=== PATIENT | male | born 1995 | race Caucasian/White ===

== ENCOUNTER 2017-07-01 14:29 | Emergency (ER) | payer OTHER ==
--- NOTE | 2017-07-01 15:13 | UC ---
General HPI - HPI Summary HPI Summary: Pt presents to with complaint of 3 days frontal head/bilat temporal pain and fatigue. Pt states feels chills, no documented fever. Pt reports nausea but no vomiting. no diarrhea. No cp, sob, abd pain. Decreased appetite. no rashes. Pt has been drinking water, no po. Denies sick contact. Pt has taken motrin for his headache - last dose this morning at 7am. Pt denies photophobia - History of Current Complaint Chief Complaint: UCGeneralIllness Stated Complaint: HEADACHE,FATIGUED Time Seen by Provider: 07/01/17 15:11 Hx Obtained From: Patient Onset/Duration: Gradual Onset Timing: Constant Onset Severity: Mild Current Severity: Moderate Pain Intensity: 7 Pain Location at: bilat temples Pain Radiates to: none Character: pressure Associated Signs & Symptoms: Positive: Decreased Oral Intake, Headache, Nausea. Negative: Dizziness, Diaphoresis, Fever - Allergy/Home Medications Allergies/Adverse Reactions: Allergies Allergy/AdvReac Type Severity Reaction Status Date / Time No Known Allergies Allergy Verified 07/01/17 14:38 Home Medications: Home Medications Ibuprofen TAB* [Advil TAB*] 400 mg PO Q6H PRN 07/01/17 [History Confirmed ] PMH/Surg Hx/FS Hx/Imm Hx Previously Healthy: Yes - Surgical History Surgical History: None - Social History Occupation: Student - lives in off campus house Alcohol Use: Weekly Substance Use Type: None Smoking Status (MU): Never Smoked Tobacco - Immunization History Most Recent Influenza Vaccination: no Review of Systems Constitutional: Chills Skin: Negative Eyes: Negative ENT: Negative Respiratory: Negative Cardiovascular: Negative Gastrointestinal: Negative Genitourinary: Negative Motor: Negative Neurovascular: Negative Musculoskeletal: Negative Neurological: Negative Psychological: Negative Is Patient Immunocompromised?: No All Other Systems Reviewed And Are Negative: Yes Physical Exam Triage Information Reviewed: Yes Appearance: Well-Appearing, Well-Nourished, Pain Distress - appears uncomfortable Vital Signs: Initial Vital Signs Temp 99.6 F 07/01/17 14:31 Pulse 83 07/01/17 14:31 Resp 16 07/01/17 14:31 BP 123/69 07/01/17 14:31 Pulse Ox 100 07/01/17 14:31 Vital Signs Reviewed: Yes Eye Exam: Normal ENT Exam: Normal ENT: Positive: TMs normal - left ear erythema no fluid, no retraction mmoist no exudate, no erythema, Other: - no pain max sinuses Neck exam: Normal Neck: Positive: Supple, Nontender, No Lymphadenopathy, Other: - neck supple, full AROM Pt reports MIRANDA increases with ROM Respiratory Exam: Normal Respiratory: Positive: Chest non-tender, Lungs clear, Normal breath sounds, No respiratory distress, No accessory muscle use Cardiovascular Exam: Normal Cardiovascular: Positive: RRR, No Murmur, Pulses Normal Abdominal Exam: Normal Abdomen Description: Positive: Nontender, No Organomegaly, Soft Bowel Sounds: Positive: Present Musculoskeletal Exam: Normal Musculoskeletal: Positive: Other: - ambulatory Neurological Exam: Normal Neurological: Positive: Alert Psychological Exam: Normal Psychological: Positive: Normal Response To Family Skin Exam: Normal Re-Evaluation - Re-Evaluation First Eval Re-Evaluation Time: 16:01 Comment: Pt continues to look unwell. strep neg, influenze neg. urine with 1+ ketone. Spoke with pt -- recommemd go to ED for further testing and evaluation. Pt comfortable and in agreement with plan. Pt requested [facility] - will call Course/Dx - Course Course Of Treatment: pt presents with bilateral temporal and frontal MIRANDA x 3 days. Pt without photophobia on exam but appears unwell. No focal exam findings for infection. Will give APAP. check rapid strep, urine for ketone. oral temp - Differential Dx - Multi-Symptom Provider Diagnoses: fever - Physician Notifications Discussed Patient Care With: Caty Wiggins NP Time Discussed With Above Provider: 16:03 Discharge - Discharge Plan Condition: Stable Disposition: OTHER Discharge Disposition Comment: pt will go to [facility] by private vehicle Patient Education Materials: Acute Headache (ED) Additional Instructions: The doctor that evaluated you today recommends you to the emergency department for further treatment and evaluation. It is recommended you go directly there from here. They are expecting you If you experience any changes in your symptoms - call [phone]
[2017-07-01] MEDS ORDERED: Acetaminophen TAB* 325 MG PO ONE (15:21)
== END 2017-07-01 16:13 ==
LOC: UCCORT 14:29
DX: R50.9 Fever, unspecified (principal)
CPT/HCPCS: 81003; 87502; 87651; 99202; A9270-GY; G0463

== ENCOUNTER 2019-07-21 09:54 | Emergency (ER) | payer OTHER ==
[2019-07-21 10:53] VITALS: BP 119/68
--- NOTE | 2019-07-21 11:35 | ED ---
Upper Extremity Pain - HPI Summary HPI Summary: 24 yr old male with the complaint of left elbow pain. Onset four days ago; he was hit with a hockey puck. He had some swelling initially ,but not now. No bruise, no STS. Pain is moderate and worse mostly with flexion. No other complaints. - History of Current Complaint Chief Complaint: UCUpperExtremity Stated Complaint: LEFT ELBOW INJURY Time Seen by Provider: 07/21/19 10:57 - Allergies/Home Medications Allergies/Adverse Reactions: Allergies Allergy/AdvReac Type Severity Reaction Status Date / Time No Known Allergies Allergy Verified 07/21/19 10:49 PMH/Surg Hx/FS Hx/Imm Hx Infectious Disease History: No Infectious Disease History: Denies: Traveled Outside the [place] in Last 30 Days - Family History Known Family History: Positive: None - Social History Occupation: Student Alcohol Use: Weekly Substance Use Type: Reports: None Smoking Status (MU): Never Smoked Tobacco Review of Systems Constitutional: Negative Positive: Other - left elbow pain All Other Systems Reviewed And Are Negative: Yes Physical Exam Triage Information Reviewed: Yes Vital Signs On Initial Exam: Initial Vitals Temp Pulse Resp BP Pulse Ox 97.5 F 64 18 119/68 100 07/21/19 10:50 07/21/19 10:50 07/21/19 10:50 07/21/19 10:50 07/21/19 10:50 Vital Signs Reviewed: Yes Appearance: Positive: Well-Appearing, No Pain Distress Skin: Positive: Warm, Skin Color Reflects Adequate Perfusion Head/Face: Positive: Normal Head/Face Inspection Eyes: Positive: EOMI ENT: Positive: Normal ENT inspection Neck: Positive: Nontender Respiratory/Lung Sounds: Positive: Clear to Auscultation, Breath Sounds Present Cardiovascular: Positive: Pulses are Symmetrical in both Upper and Lower Extremities Abdomen Description: Negative: Distended Musculoskeletal: Positive: Other - left elbow without STS. No bruising no redness, no effusion. He has normal supination and pronation. Pain is a little worse with full extension, and with flexion. Neurological: Positive: Sensory/Motor Intact, Alert, Oriented to Person Place, Time, CN Intact II-III, Speech Normal Psychiatric: Positive: Normal Diagnostics - Vital Signs Vital Signs Temp Pulse Resp BP Pulse Ox 07/21/19 10:50 97.5 F 64 18 119/68 100 - Laboratory Lab Statement: Any lab studies that have been ordered have been reviewed, and results considered in the medical decision making process. - Radiology left elbow Radiology Interpretation Completed By: Radiologist - nad Course/Dx - Course Course Of Treatment: 24 yr old with contusion elbow. Xray neg - Diagnoses Provider Diagnoses: Left elbow contusion Discharge ED - Sign-Out/Discharge Documenting (check all that apply): Patient Departure All imaging exams completed and their final reports reviewed: Yes - Discharge Plan Condition: Good Disposition: HOME Patient Education Materials: Contusion in Adults (ED) Referrals: No Primary Care Phys,NOPCP [Primary Care Provider] - David Ken MD [Medical Doctor] - 2 Days - Billing Disposition and Condition Condition: GOOD Disposition: Home
== END 2019-07-21 11:50 | disposition home or self-care (01) ==
LOC: UCCORT 09:54
DX: S50.02XA Contusion of left elbow, initial encounter (principal); W21.220A Struck by ice hockey puck, initial encounter; Y92.9 Unspecified place or not applicable; M19.022 Primary osteoarthritis, left elbow
CPT/HCPCS: 99211; G0463